=== PATIENT | female | born 1950 | race Caucasian/White ===

== ENCOUNTER 2017-10-23 21:40 | Inpatient (IN) | payer MEDICARE ==
[~2017-10-23] VITALS: Ht 152.4 cm; Wt 69.4 kg
[2017-10-23] MEDS ORDERED: ALBUTEROL/IPRATROPIUM 3 ML NEB NEB ONE (22:15)
[2017-10-23] MEDS ORDERED: ASPIRIN 81 MG CHEW TAB PO ONE (22:15)
[2017-10-23 22:33] LABS: BASOPHILS % 0.6 % (0.0-1.0); EOSINOPHILS # (AUTO) 0.1 (0.0-0.4); EOSINOPHILS % 1.8 % (0.0-6.0); HEMOGLOBIN 14.1 g/dL (12.0-16.0); LYMPHOCYTES # (AUTO) 0.9 (1.0-3.2); LYMPHOCYTES % 26.4 % (18.0-39.1); MEAN CORPUSCULAR HEMOGLOBIN 30.2 pg (28-32); MEAN CORPUSCULAR HGB CONC 33.6 g/dL (31-35); MEAN CORPUSCULAR VOLUME 89.9 fL (81-99); MONOCYTES # (AUTO) 0.4 (0.2-0.8); MONOCYTES % 13.2 % (4.4-11.3); NEUTROPHILS # (AUTO) 1.9 (2.1-6.9); NEUTROPHILS % 57.7 % (38.7-80.0); PLATELET COUNT 146 x10e3/uL (140-360); RED BLOOD COUNT 4.67 x10e6/uL (3.6-5.1); RED CELL DISTRIBUTION WIDTH 12.9 % (11.7-14.4)
[2017-10-23 22:39] LABS: BILIRUBIN,URINE NEGATIVE (NEGATIVE); CLARITY,URINE CLEAR (CLEAR); COLOR,URINE YELLOW (YELLOW); KETONES,URINE NEGATIVE (NEGATIVE); LEUKOCYTE ESTERASE ,URINE NEGATIVE (NEGATIVE); NITRITE,URINE NEGATIVE (NEGATIVE); PROTEIN,URINE DIPSTICK NEGATIVE (NEGATIVE); URINE UROBILINOGEN 0.2 mg/dL (0.2 - 1)
[2017-10-23 22:45] LABS: INR 0.93; PROTHROMBIN TIME 12.9 seconds (11.9-14.5)
[2017-10-23 22:46] LABS: PARTIAL THROMBOPLASTIN TIME 26.9 seconds (23.8-35.5)
[2017-10-23 22:51] LABS: EPITHELIAL CELLS,URINE RARE /LPF; RBC,URINE 0-5 /HPF (0-5); WBC,URINE (MAN) 0-5 /HPF (0-5)
[2017-10-23 22:52] LABS: ALBUMIN 3.6 g/dL (3.5-5.0); ALBUMIN/GLOBULIN RATIO 1.2 (0.8-2.0); ANION GAP 11.1 mmol/L (8-16); CALCIUM 8.8 mg/dL (8.4-10.2); CREATININE, SERUM 0.94 mg/dL (0.57-1.11); POTASSIUM 3.1 mmol/L (3.5-5.1)
[2017-10-23 22:58] LABS: CREATINE KINASE MB 3.4 ng/mL (0.00-5.00); TROPONIN I 0.135 ng/mL (0-0.300)
--- NOTE | 2017-10-23 23:45 | Diagnostic Imaging Report ---
EXAMINATION: CHEST SINGLE (PORTABLE) INDICATION: Chest pain. COMPARISON: None FINDINGS: TUBES and LINES: None. LUNGS: Lungs are well inflated. Lungs are clear. There is no evidence of pneumonia or pulmonary edema. PLEURA: No pleural effusion or pneumothorax. HEART AND MEDIASTINUM: The cardiomediastinal silhouette is unremarkable. Prominent left epicardial fat. BONES AND SOFT TISSUES: No acute osseous lesion. Soft tissues are unremarkable. UPPER ABDOMEN: No free air under the diaphragm. IMPRESSION: No acute thoracic abnormality. Signed by: Dr. Alfie Hyde M.D. on 10/23/2017 11:42 PM
[2017-10-24] MEDS ORDERED: POTASSIUM CHLORIDE 20 MEQ TAB CR PO STA ×2 (00:13→09:56)
[2017-10-24] MEDS ORDERED: ONDANSETRON HCL INJ 2 MG/ML VIAL IV STA (01:04)
[2017-10-24] MEDS ORDERED: MORPHINE SULFATE 2 MG/ML SYR IV STA (01:04)
[2017-10-24] MEDS ORDERED: ASPIRIN 81 MG CHEW TAB PO ONE (01:15)
[2017-10-24] MEDS: NITROGLYCERIN 2% OINT 1 GM PKT TOP SCH ×4 (01:33→18:00)
[2017-10-24] MEDS ORDERED: MORPHINE SULFATE 2 MG/ML SYR IV PRN (03:00)
[2017-10-24] MEDS ORDERED: ONDANSETRON HCL INJ 2 MG/ML VIAL IV PRN (03:00)
[2017-10-24] MEDS ORDERED: NITROGLYCERIN 0.4 MG SUBL SL PRN (03:00)
[2017-10-24] MEDS: OSELTAMIVIR PHOSPHATE 75 MG CAP PO SCH ×3 (03:32→16:10)
[2017-10-24] MEDS: ALBUTEROL SULF 0.083% NEB SOLN 3 ML NEB NEB SCH ×5 (05:22→18:55)
[2017-10-24] MEDS: IPRATROPIUM BROMIDE 0.02% 2.5 ML NEB NEB SCH ×5 (05:22→18:55)
[2017-10-24 08:28] LABS: CREATINE KINASE MB 12.9 ng/mL (0.00-5.00)
[2017-10-24 08:31] LABS: TROPONIN I 2.344 ng/mL (0-0.300)
[2017-10-24] MEDS ORDERED: ASPIRIN 81 MG ENTERIC COATED PO SCH (09:00)
[2017-10-24 09:40] VITALS: BP 102/57
[2017-10-24] MEDS: ASPIRIN 325 MG TAB PO SCH (10:30)
[2017-10-24] MEDS: FAMOTIDINE 20 MG/2 ML VIAL IV SCH ×2 (10:30→21:28)
--- NOTE | 2017-10-24 11:18 | History and Physical ---
PRIMARY CARE PHYSICIAN: Kd Mayo DO CHIEF COMPLAINT: Cough, shortness of breath, chest discomfort. HISTORY OF PRESENT ILLNESS: This is a 67-year-old woman with a history of COPD, who normally uses an inhaler. Now has been having shortness of breath and cough for the past week, worsening now with shortness of breath. Using a nebulizer, which she does not normally use. Had to take a nitroglycerin and aspirin and felt better, but came to the hospital for further evaluation and management. Here, she was found to have elevated troponin and positive flu test. She was admitted for further evaluation and management. PAST MEDICAL HISTORY 1. Hypertension. 2. Carotid artery stenosis, status post right carotid endarterectomy. 3. COPD. 4. Cigarette abuse, quitting 16 years ago. PAST SURGICAL HISTORY: Right carotid endarterectomy. ALLERGIES: PER ELECTRONIC MEDICAL RECORD. FAMILY HISTORY/SOCIAL HISTORY: Patient is single. She has 3 children. No alcohol or illicits. She quit cigarettes 16 years ago. MEDICATIONS: Per electronic medical record. REVIEW OF SYSTEMS: Denies any dizziness or chest pain at this time. PHYSICAL EXAMINATION VITAL SIGNS: Temperature 97.5, pulse 101, blood pressure 125/82. GENERAL: A tired-appearing woman resting in bed. HEENT: Anicteric. Pupils are responsive to light. No oral lesions. CARDIOVASCULAR: Normal S1 and S2. A loud murmur. LUNGS: Moderate breath sounds. Coarse breath sounds with deep inspiration. Cough on deep inspiration. Scattered wheezing. ABDOMEN: Soft, nontender, nondistended. EXTREMITIES: No edema. SKIN: Dry. PSYCHIATRIC: Normal affect. NEUROLOGIC: Alert and oriented times 3, moving all extremities. LABS: Reviewed. MEDICATIONS: Reviewed. ASSESSMENT AND PLAN: This is a 67-year-old woman. 1. Lif-MU-bmotvbkyl myocardial infarction. Cardiology consult. She had a stress test more than 2 years ago. Results are unknown. Cardiology has been consulted. We will follow enzymes. We will obtain a lipid panel. 2. Obesity. BMI 30.5. We will screen for diabetes and obtain a lipid panel. 3. Positive influenza screening. Continue Tamiflu and azithromycin. 4. Hypertension. Will treat with medications. 5. Acute bronchitis. Will use azithromycin. 6. Cough. Will use antitussive medication. 7. Acute kidney injury. Will reassess with the next lab results. 8. Hypokalemia, mild. Will reassess later today. 9. Prophylaxis. Will use Lovenox treatment dose q.12 h. and Pepcid. 10. Disposition: Follow up enzymes. Follow cardiology's recommendations. Treatment as noted above. Job#: [id number]
[2017-10-24] MEDS ORDERED: ALPRAZOLAM 0.5 MG TAB PO SCH (12:00)
[2017-10-24 13:11] VITALS: BP 92/53
--- NOTE | 2017-10-24 14:21 | Consultation ---
DATE OF CONSULTATION: October 24, 2017 CARDIOLOGY CONSULTATION REQUESTING PHYSICIAN: Dr. Gil Jordan. REASON FOR CONSULTATION: Elevated troponin. HISTORY OF PRESENT ILLNESS: This is a 67-year-old female that presented with chest pain. According to the patient, for the last 1 week she has been having productive cough and not really feeling good and unable to catch her breath. She stated today it got worse where she was not able to catch her breath. She took neb treatment, aspirin and nitroglycerin x3, and the chest pain was still going on that she decided to come into the emergency room for evaluation. She described the chest pain as a constant pressure on the left side of her chest on a scale of 9 out of 10 that radiated to her neck and jaw. She also stated it was accompanied with shortness of breath and diaphoresis. She has a history of COPD, and she was found to be flu positive. She also has a history of CVA with right carotid endarterectomy. She denies any palpitation, any dizziness or headache. Troponin x2 was positive. EKG showed normal sinus rhythm with nonspecific ST abnormalities. PAST MEDICAL HISTORY: CVA, fibromyalgia, COPD, hypertension, hyperlipidemia and diverticulitis. PAST SURGICAL HISTORY: Right carotid endarterectomy, removal of 10 inches of the colon and exploratory laparotomy, carpal tunnel surgery bilaterally, and lumpectomy on the left breast. FAMILY HISTORY: Positive for CAD. SOCIAL HISTORY: She quit smoking, and she lives at home with her family. MEDICATIONS: See med list. ALLERGIES: SHE IS NOT ALLERGIC TO ANY MEDICATION. REVIEW OF SYSTEMS: Negative except those mentioned above. She is positive for chest pain, elevated troponin, and flu positive. PHYSICAL EXAMINATION VITAL SIGNS: Temperature 98, heart rate 96, blood pressure 111/83, respiration 18, oxygen saturation 97% on 2 liters nasal cannula. GENERAL: She is awake, alert and oriented x3. HEENT: Mucous membrane moist. NECK: Supple. LUNGS: Bilaterally with decreased breath sounds. CARDIOVASCULAR: S1/S2 present. ABDOMEN: Soft. NEUROLOGICAL: Intact. EXTREMITIES: With no edema. LABS: Sodium 134, potassium 3.1, chloride 98, CO2 28, BUN 11, creatinine 0.94, glucose 135. White blood cell 3.33, hemoglobin 14.1, hematocrit 42.0, platelet 146. PT 12.9, PTT 26.9, INR 0.93. IMPRESSION 1. Chest pain. 2. Hgv-UO-abzeafxus myocardial infarction. 3. Chronic obstructive pulmonary disease exacerbation. 4. Flu A positive. 5. Hypertension. 6. Hyperlipidemia. 7. History of cerebrovascular accident. ASSESSMENT/PLAN: Will get serial cardiac enzymes. The 1st one was negative, 2nd one was positive 2.3. Would put her on Lovenox subcutaneous. Possible cardiac cath when stable. Will get an echo to assess the LV and valve function. She is already on Tamiflu, and will get a list of her home medication and replace potassium. Further cardiac workup pending clinical course. Thank you for this consultation. Dictated by: Lucía Washington NP Job#: [id number] MA[place]
[2017-10-24] MEDS: METOPROLOL TARTRATE 25 MG TAB PO SCH (16:10)
[2017-10-24 17:02] VITALS: BP 97/53
[2017-10-24 17:32] LABS: ANION GAP 12.7 mmol/L (8-16); CALCIUM 8.8 mg/dL (8.4-10.2); CREATININE, SERUM 0.97 mg/dL (0.57-1.11); POTASSIUM 4.7 mmol/L (3.5-5.1)
[2017-10-24 17:46] LABS: CREATINE KINASE MB 10.9 ng/mL (0.00-5.00)
[2017-10-24 17:48] LABS: TROPONIN I 1.248 ng/mL (0-0.300)
[2017-10-24 20:00] VITALS: BP 116/61
[2017-10-24] MEDS ORDERED: ATORVASTATIN 10 MG TAB PO SCH (21:00)
[2017-10-24] MEDS: SIMVASTATIN 20 MG TAB PO SCH (21:28)
[2017-10-24] MEDS: ENOXAPARIN INJ 80 MG/0.8 ML SYR SC SCH (21:28)
[2017-10-24] MEDS ORDERED: GUAIFENESIN/DEXTROMETHORPHAN LIQD 5 ML UDC PO PRN (21:45)
[2017-10-24] MEDS: BENZONATATE 100 MG CAP PO SCH (22:00)
[2017-10-25] VITALS: BP 109/95
[2017-10-25] MEDS: NITROGLYCERIN 2% OINT 1 GM PKT TOP SCH ×5 (00:48→23:45)
[2017-10-25] MEDS: ALBUTEROL SULF 0.083% NEB SOLN 3 ML NEB NEB SCH ×6 (01:05→23:00)
[2017-10-25] MEDS: IPRATROPIUM BROMIDE 0.02% 2.5 ML NEB NEB SCH ×5 (01:05→19:45)
[2017-10-25 04:00] VITALS: BP 105/61
[2017-10-25 07:54] LABS: BASOPHILS % 0.4 % (0.0-1.0); EOSINOPHILS % 0.4 % (0.0-6.0); HEMATOCRIT 39.5 % (34.2-44.1); HEMOGLOBIN 13.4 g/dL (12.0-16.0); LYMPHOCYTES # (AUTO) 1.5 (1.0-3.2); LYMPHOCYTES % 30.9 % (18.0-39.1); MEAN CORPUSCULAR HEMOGLOBIN 30.3 pg (28-32); MEAN CORPUSCULAR HGB CONC 33.9 g/dL (31-35); MEAN CORPUSCULAR VOLUME 89.4 fL (81-99); MONOCYTES # (AUTO) 0.6 (0.2-0.8); MONOCYTES % 12.7 % (4.4-11.3); NEUTROPHILS # (AUTO) 2.8 (2.1-6.9); NEUTROPHILS % 55.4 % (38.7-80.0); PLATELET COUNT 132 x10e3/uL (140-360); RED BLOOD COUNT 4.42 x10e6/uL (3.6-5.1); RED CELL DISTRIBUTION WIDTH 13.2 % (11.7-14.4)
[2017-10-25 08:07] LABS: ALBUMIN 3.1 g/dL (3.5-5.0); ALBUMIN/GLOBULIN RATIO 1.1 (0.8-2.0); CALCIUM 8.4 mg/dL (8.4-10.2); CHOL/HDL RATIO 3.4 (3.0-3.6); CREATININE, SERUM 0.97 mg/dL (0.57-1.11)
[2017-10-25 08:12] VITALS: BP 118/59
[2017-10-25] MEDS ORDERED: LISINOPRIL 10 MG TAB PO SCH ×2 (09:00)
[2017-10-25] MEDS: FAMOTIDINE 20 MG/2 ML VIAL IV SCH ×2 (09:16→21:00)
[2017-10-25] MEDS: ASPIRIN 325 MG TAB PO SCH (09:16)
--- NOTE | 2017-10-25 09:16 | Progress Note ---
DATE: October 25, 2017 TIME: 8:50 a.m. OVERNIGHT: No events. No chest pain. REVIEW OF SYSTEMS: Denies any dizziness. PHYSICAL EXAMINATION VITAL SIGNS: Reviewed. GENERAL: A tired-appearing woman resting in bed. HEENT: Anicteric. CARDIOVASCULAR: Normal S1 and S2. LUNGS: Moderate breath sounds. ABDOMEN: Soft, nontender and nondistended. EXTREMITIES: No edema. SKIN: Dry. PSYCHIATRIC: Flat affect. LABS: Reviewed. MEDICATIONS: Reviewed. ASSESSMENT: A 67-year-old woman with: 1. Meu-OW-vklrrol elevation myocardial infarction. 2. Obesity: Body mass index 30.5. 3. Positive influenza screening. 4. Hypertension. 5. Acute bronchitis/cough. 6. Acute kidney injury. 7. Hypokalemia, mild. PLAN 1. Continue medical treatment of acute coronary syndrome and follow up cardiology recommendations. 2. Continue Tamiflu and azithromycin, day #2. 3. Continue treatment for acute bronchitis. 4. Continue antitussive medications. 5. Hypokalemia has resolved. 6. Continue Lovenox treatment dose. Await cardiology recommendations. 7. LDL 69 and triglycerides 119. Hemoglobin A1c 5.5. Job#: [id number] COLLEEN
[2017-10-25] MEDS: METOPROLOL TARTRATE 25 MG TAB PO SCH ×2 (09:17→17:06)
[2017-10-25] MEDS: ENOXAPARIN INJ 80 MG/0.8 ML SYR SC SCH ×2 (09:17→21:00)
[2017-10-25] MEDS: BENZONATATE 100 MG CAP PO SCH ×3 (09:17→21:00)
[2017-10-25] MEDS: LISINOPRIL 2.5 MG TAB PO SCH (09:17)
[2017-10-25] MEDS: ISOSORBIDE MONONITRATE 30 MG TAB CR PO SCH (09:17)
[2017-10-25] MEDS: OSELTAMIVIR PHOSPHATE 75 MG CAP PO SCH ×2 (09:17→17:06)
[2017-10-25 12:15] VITALS: BP 102/52
[2017-10-25 16:21] VITALS: BP 105/55
[2017-10-25 20:02] VITALS: BP 121/68
[2017-10-25] MEDS: SIMVASTATIN 20 MG TAB PO SCH (21:00)
[2017-10-26 00:35] VITALS: BP 112/60
[2017-10-26] MEDS: IPRATROPIUM BROMIDE 0.02% 2.5 ML NEB NEB SCH ×6 (02:11→23:00)
[2017-10-26] MEDS: ALBUTEROL SULF 0.083% NEB SOLN 3 ML NEB NEB SCH ×6 (02:12→23:00)
[2017-10-26 04:15] VITALS: BP 108/51
[2017-10-26] MEDS: NITROGLYCERIN 2% OINT 1 GM PKT TOP SCH ×3 (06:12→18:00)
[2017-10-26] MEDS ORDERED: FENTANYL CITRATE/PF 100MCG/2 ML INJ ONE (06:43)
[2017-10-26] MEDS ORDERED: HEPARIN SOD (PORCINE) 1000 UNIT/ML 30ML ONE (06:43)
[2017-10-26] MEDS ORDERED: HEPARIN SOD/SOD CHLORIDE 0 ML ONE (06:44)
[2017-10-26] MEDS ORDERED: LIDOCAINE HCL 2% LOCAL 20 ML VIAL ONE (06:44)
[2017-10-26] MEDS ORDERED: IOPAMIDOL 370 MG/ML 200 ML INFUS..BTL INJ ONE (06:44)
[2017-10-26] MEDS ORDERED: IOPAMIDOL 300MG/ML 50ML INFUS..BTL IV ONE (06:44)
[2017-10-26] MEDS ORDERED: MIDAZOLAM HCL 2 MG/2 ML VIAL ONE (06:45)
[2017-10-26] MEDS ORDERED: SODIUM CHLORIDE 0.9% 1000ML 0 ML ONE (06:45)
[2017-10-26 07:52] VITALS: BP 108/65
[2017-10-26] MEDS: ASPIRIN 325 MG TAB PO SCH (09:15)
[2017-10-26] MEDS: FAMOTIDINE 20 MG/2 ML VIAL IV SCH ×2 (09:15→21:25)
[2017-10-26] MEDS: ENOXAPARIN INJ 80 MG/0.8 ML SYR SC SCH ×3 (09:15→22:00)
[2017-10-26] MEDS: BENZONATATE 100 MG CAP PO SCH ×3 (09:15→21:25)
[2017-10-26] MEDS: OSELTAMIVIR PHOSPHATE 75 MG CAP PO SCH ×2 (09:15→18:13)
[2017-10-26] MEDS: METOPROLOL TARTRATE 25 MG TAB PO SCH ×2 (09:16→17:00)
[2017-10-26] MEDS: ISOSORBIDE MONONITRATE 30 MG TAB CR PO SCH (09:16)
[2017-10-26] MEDS: LISINOPRIL 2.5 MG TAB PO SCH (09:16)
--- NOTE | 2017-10-26 09:21 | Progress Note ---
DATE: October 26, 2017 TIME: 8 a.m. OVERNIGHT: Patient had some shortness of breath, practically short of breath with minimal ambulation. No chest pain. REVIEW OF SYSTEMS: Denies any dizziness. PHYSICAL EXAMINATION VITAL SIGNS: Reviewed. GENERAL: A tired-appearing woman resting in bed. HEENT: Anicteric. CARDIOVASCULAR: Normal S1 and S2. No murmurs heard. LUNGS: Some cough with deep inspiration. ABDOMEN: Soft, nontender and nondistended. EXTREMITIES: No edema. SKIN: Dry. PSYCHIATRIC: Normal affect. LABS: Reviewed. LDL 69, triglycerides 119. Hemoglobin A1c 5.5. MEDICATIONS: Reviewed. ASSESSMENT: A 67-year-old woman with 1. Non-ST segment elevation myocardial infarction. 2. Obesity: Body mass index 30.5. 3. Positive influenza screening. 4. Hypertension. 5. Acute bronchitis/cough. 6. Acute kidney injury. 7. Hypokalemia. PLAN 1. Continue medical management and medical treatment for acute coronary syndrome. 2. Continue Tamiflu day #3. 3. Continue treatment for acute bronchitis. 4. Continue antitussive medication. 5. Continue Lovenox treatment. 6. Patient refused left heart catheterization, therefore we will continue medical management only. 7. Discharge planning. Job#: [id number]
[2017-10-26 12:01] VITALS: BP 104/73
[2017-10-26 15:54] VITALS: BP 95/64
[2017-10-26 20:36] VITALS: BP 102/72
[2017-10-26] MEDS: SIMVASTATIN 20 MG TAB PO SCH (21:25)
[2017-10-27 00:04] VITALS: BP 101/71
[2017-10-27 04:17] VITALS: BP 101/71
[2017-10-27] MEDS: NITROGLYCERIN 2% OINT 1 GM PKT TOP SCH ×4 (05:20→18:23)
[2017-10-27 05:27] VITALS: BP 92/70
[2017-10-27] MEDS ORDERED: LIDOCAINE HCL 2% LOCAL 20 ML VIAL ONE (06:44)
[2017-10-27] MEDS ORDERED: HEPARIN SOD (PORCINE) 1000 UNIT/ML 30ML ONE (06:44)
[2017-10-27] MEDS ORDERED: SODIUM CHLORIDE 0.9% 1000ML 1,000 ML ONE (06:45)
[2017-10-27] MEDS ORDERED: IOPAMIDOL 370 MG/ML 200 ML INFUS..BTL INJ ONE (06:45)
[2017-10-27] MEDS ORDERED: NITROGLYCERIN/D5W 200 MCG/ML 250 ML ONE (06:45)
[2017-10-27] MEDS ORDERED: IOPAMIDOL 300MG/ML 50ML INFUS..BTL IV ONE (06:45)
[2017-10-27] MEDS ORDERED: HEPARIN SOD/SOD CHLORIDE 2,000 ML ONE (06:45)
[2017-10-27] MEDS: IPRATROPIUM BROMIDE 0.02% 2.5 ML NEB NEB SCH ×5 (07:00→23:00)
[2017-10-27] MEDS: ALBUTEROL SULF 0.083% NEB SOLN 3 ML NEB NEB SCH ×5 (07:00→23:00)
[2017-10-27 07:44] VITALS: BP 121/68
[2017-10-27] MEDS ORDERED: MIDAZOLAM HCL 2 MG/2 ML VIAL ONE (07:44)
[2017-10-27] MEDS ORDERED: FENTANYL CITRATE/PF 100MCG/2 ML INJ ONE (07:44)
--- NOTE | 2017-10-27 08:07 | Progress Note ---
DATE: October 27, 2017 TIME: 7:30 a.m. OVERNIGHT: No events. No chest pain. REVIEW OF SYSTEMS: Denies any dizziness. PHYSICAL EXAMINATION VITAL SIGNS: Reviewed. GENERAL: A tired-appearing woman resting in bed. HEENT: Anicteric. CARDIOVASCULAR: Normal S1 and S2. LUNGS: Moderate breath sounds. ABDOMEN: Soft, nontender and nondistended. EXTREMITIES: No edema. SKIN: Dry. PSYCHIATRIC: Flat affect. LABS: Reviewed. MEDICATIONS: Reviewed. ASSESSMENT: A 67-year-old woman with: 1. Cyj-AS-wetjxgo elevation myocardial infarction. 2. Obesity: Body mass index 30.5. 3. Positive influenza screening. 4. Hypertension. 5. Acute bronchitis/cough. 6. Acute kidney injury. 7. Hypokalemia. PLAN 1. Left heart catheterization pending today. 2. Continue Tamiflu, day #4. 3. Continue treatment for acute bronchitis. Will continue antitussive medications. 4. Continue Lovenox. 5. Continue Pepcid while on anticoagulant. Job#: [id number] [place]
[2017-10-27] MEDS: LISINOPRIL 2.5 MG TAB PO SCH (09:00)
[2017-10-27] MEDS: ASPIRIN 325 MG TAB PO SCH (09:00)
[2017-10-27] MEDS: ISOSORBIDE MONONITRATE 30 MG TAB CR PO SCH (09:00)
[2017-10-27] MEDS: FAMOTIDINE 20 MG/2 ML VIAL IV SCH ×2 (09:45→20:28)
[2017-10-27] MEDS: BENZONATATE 100 MG CAP PO SCH ×3 (09:45→20:28)
[2017-10-27] MEDS: OSELTAMIVIR PHOSPHATE 75 MG CAP PO SCH ×2 (09:45→18:00)
[2017-10-27] MEDS: METOPROLOL TARTRATE 25 MG TAB PO SCH ×2 (09:45→18:00)
[2017-10-27 12:38] VITALS: BP 106/56
[2017-10-27 20:00] VITALS: BP 98/54
[2017-10-27] MEDS: SIMVASTATIN 20 MG TAB PO SCH (20:28)
[2017-10-28] VITALS: BP 97/51
[2017-10-28 00:19] VITALS: BP 97/51
[2017-10-28] MEDS: ALBUTEROL SULF 0.083% NEB SOLN 3 ML NEB NEB SCH ×2 (03:40→07:00)
[2017-10-28] MEDS: IPRATROPIUM BROMIDE 0.02% 2.5 ML NEB NEB SCH ×2 (03:40→07:00)
[2017-10-28 04:00] VITALS: BP 110/63
[2017-10-28] MEDS: NITROGLYCERIN 2% OINT 1 GM PKT TOP SCH ×3 (05:33→12:00)
[2017-10-28 08:00] VITALS: BP 117/82
[2017-10-28] MEDS: LISINOPRIL 2.5 MG TAB PO SCH (09:30)
[2017-10-28] MEDS: BENZONATATE 100 MG CAP PO SCH ×2 (09:30→16:15)
[2017-10-28] MEDS: ASPIRIN 325 MG TAB PO SCH (09:30)
[2017-10-28] MEDS: ISOSORBIDE MONONITRATE 30 MG TAB CR PO SCH (09:30)
[2017-10-28] MEDS: METOPROLOL TARTRATE 25 MG TAB PO SCH (09:30)
[2017-10-28] MEDS: FAMOTIDINE 20 MG/2 ML VIAL IV SCH (09:30)
[2017-10-28] MEDS: OSELTAMIVIR PHOSPHATE 75 MG CAP PO SCH ×2 (09:30→16:15)
[2017-10-28 12:00] VITALS: BP 101/65
[2017-10-28] MEDS ORDERED: NITROSTAT0.4 MG SL (13:42)
[2017-10-28] MEDS ORDERED: LISINOPRIL2.5 MG PO (13:42)
[2017-10-28] MEDS ORDERED: TESSALON PERLE100 MG PO (13:42)
[2017-10-28] MEDS ORDERED: PLAVIX75 MG PO (13:42)
[2017-10-28] MEDS ORDERED: SIMVASTATIN20 MG PO (13:42)
[2017-10-28] MEDS ORDERED: Isosorbide Mononitrate PO (13:42)
[2017-10-28] MEDS ORDERED: ASPIRIN325 MG PO (13:42)
[2017-10-28] MEDS ORDERED: LOPRESSOR25 MG PO (13:42)
[2017-10-28 16:00] VITALS: BP 102/76
--- NOTE | 2017-10-29 09:59 | Discharge Summary ---
PRINCIPAL DIAGNOSES 1. Non-ST elevation myocardial infarction with heart catheterization done without intervention. 2. Obesity. BMI 30.5. 3. Positive influenza, treated with Tamiflu. 4. Acute bronchitis. 5. Acute kidney injury. 6. Severe chronic obstructive pulmonary disease requiring oxygen now. SECONDARY DIAGNOSIS: Chronic obstructive pulmonary disease. CHIEF COMPLAINT: Shortness of breath, cough and chest pain. HISTORY OF PRESENT ILLNESS: This is a 67-year-old woman with chest pain. Please refer to the H\T\P for further details. HOSPITAL COURSE: The patient was found to have non-ST elevation HI and underwent heart catheterization without intervention. She had obesity with BMI 30.5, positive influenza screening treated with Tamiflu for 5 days. Acute exacerbation of COPD treated with steroids and nebs and antitussive medications. The patient is doing better and feeling better and currently appropriate for discharge. DISCHARGE MEDICATIONS: Per electronic medical records. FOLLOWUP INSTRUCTIONS: Follow up with primary care physician in one week and follow up with cardiology in 2 weeks. CONDITION ON DISCHARGE: Stable and improving. DISCHARGE LOCATION: Home with oxygen. MARCO A BURTON MD Job#: [id number]
--- NOTE | 2017-11-04 20:05 | Operative Report ---
DATE OF PROCEDURE: October 27, 2017 NOTE: This report was dictated but apparently did not go through, so it has been redictated. INDICATIONS: Sxi-XK-tpaatyzat myocardial infarction. PROCEDURES PERFORMED 1. Left heart catheterization. 2. Selective coronary angiogram. 3. Left ventriculogram. DESCRIPTION OF PROCEDURE: After informed consent, the patient was brought to the cardiac catheterization laboratory and placed on the table. Both groins were painted and draped in a sterile fashion. Lidocaine was injected in the right groin for local anesthesia. The right femoral artery was accessed by Seldinger technique, and a 5-Eritrean sheath was placed in the right femoral artery. The left main artery was cannulated using a [id number] 5-Eritrean catheter. Coronary angiogram was performed, and images were obtained in multiple views. The right coronary artery was cannulated using a [id number] 5-Eritrean catheter. Coronary angiogram was performed, and images were obtained in multiple views. LV-gram was performed using a pigtail catheter. The patient tolerated the procedure without any complications. REPORT LEFT MAIN: Normal caliber and free of disease. LEFT ANTERIOR DESCENDING: Narrow caliber, and there are luminal irregularities. LEFT CIRCUMFLEX: Normal caliber and free of disease. RIGHT CORONARY ARTERY: Normal caliber and free of disease. LV-GRAM: Normal LV function. Overall ejection fraction is 55%. HEMODYNAMICS: Aortic pressure 112/65, LV pressure 115/6, LVEDP 20. PLAN: Medical management. Job#: [id number]
== END 2017-10-28 17:00 | disposition home or self-care (01) | DRG 281 ==
LOC: ER 21:40 → ERHOLD 10-24 03:18 → IMCU 10-24 08:22 → MED/SURG3 10-24 15:37 → OBSVTOIN 10-25 08:45
PROVIDERS: ADMIT Internal Medicine; ATTEND Internal Medicine
PROC: 4A023N7 Measurement of Cardiac Sampling and Pressure, Left Heart, Percutaneous Approach (ICD-10-PCS; principal; 2017-10-27)
PROC: B2111ZZ Fluoroscopy of Multiple Coronary Arteries using Low Osmolar Contrast (ICD-10-PCS; 2017-10-27)
PROC: B2151ZZ Fluoroscopy of Left Heart using Low Osmolar Contrast (ICD-10-PCS; 2017-10-27)
DX: I21.4 Non-ST elevation (NSTEMI) myocardial infarction (principal); I31.9 Disease of pericardium, unspecified; N17.9 Acute kidney failure, unspecified; J44.0 Chronic obstructive pulmonary disease with (acute) lower respiratory infection; J44.1 Chronic obstructive pulmonary disease with (acute) exacerbation; J10.1 Influenza due to other identified influenza virus with other respiratory manifestations; J20.9 Acute bronchitis, unspecified; I10 Essential (primary) hypertension; E78.5 Hyperlipidemia, unspecified; M79.7 Fibromyalgia; E87.6 Hypokalemia; E66.9 Obesity, unspecified; Z68.30 Body mass index [BMI] 30.0-30.9, adult; Z87.891 Personal history of nicotine dependence; Z86.73 Personal history of transient ischemic attack (TIA), and cerebral infarction without residual deficits; Z79.82 Long term (current) use of aspirin; Z79.02 Long term (current) use of antithrombotics/antiplatelets
CPT/HCPCS: 36140; 36415; 71010; 77002; 80048; 80053; 80061; 81001; 82550; 82553; 83036; 83605; 83880; 84484; 85025; 85610; 85730; 87040; 87086; 87400; 93005; 93306; 93452; 93458; 94640; 96374; 96375; 96376; 99284; G0378; J1644; J1650; J2001; J2250; J2270; J2405; J7030; Q9967

== ENCOUNTER → 2018-10-26 | Outpatient (CLI) | payer MEDICARE ==
[~2018-10-26] MED LIST: ASPIRIN325 MG PO; FENTANYL CITRATE/PF 100MCG/2 ML INJ ONE; Isosorbide Mononitrate PO; LISINOPRIL2.5 MG PO; LOPRESSOR25 MG PO; NITROSTAT0.4 MG SL; PLAVIX75 MG PO; SIMVASTATIN20 MG PO; TESSALON PERLE100 MG PO
--- NOTE | 2018-10-26 15:21 | Diagnostic Imaging Report ---
EXAMINATION: Abdominal ultrasound. CLINICAL INDICATION: Right upper quadrant pain COMPARISON: None DISCUSSION: Transverse and longitudinal images of the upper abdomen were obtained. The liver is normal in size measuring 13.6 centimeters in length in the right midclavicular line and shows normal echogenicity. No focal masses are seen in the liver. There is no intrahepatic biliary dilatation. The common bile duct measures 0.2 cm. The main portal vein is normal in caliber and measures 0.8 cm with normal hepatopetal flow. The gallbladder is normal in appearance without stones, wall thickening or pericholecystic fluid. The sonographic Dalton's sign is negative. The visualized portions of the pancreatic body are unremarkable. The spleen is normal in echogenicity and size measuring 7.1 centimeters in length. The right kidney measures 9.4 centimeters in length and the left kidney measures 9 centimeters. There is normal renal cortical echogenicity and no hydronephrosis, solid mass or shadowing calculi. The visualized portions of the great vessels are normal. No free fluid is seen. IMPRESSION: Normal abdominal ultrasound. Signed by: Dr. Bradford Guerin M.D. on 10/26/2018 3:17 PM
== END ==
LOC: US 13:14
PROVIDERS: ATTEND Family Medicine
DX: R10.11 Right upper quadrant pain (principal)
CPT/HCPCS: 76700

== ENCOUNTER → 2021-02-04 | Outpatient (CLI) | payer MEDICARE ==
[~2021-02-04] MED LIST changes: -FENTANYL CITRATE/PF 100MCG/2 ML INJ ONE
== END ==
LOC: RAD 12:16
PROVIDERS: ATTEND Internal Medicine Critical Care Medicine
DX: J44.9 Chronic obstructive pulmonary disease, unspecified (principal)
CPT/HCPCS: 71046

== ENCOUNTER → 2025-01-08 | Outpatient (REF) | payer MEDICARE | LOC: RAD 15:38 | PROVIDERS: ATTEND Internal Medicine Critical Care Medicine | DX: J44.9 Chronic obstructive pulmonary disease, unspecified (principal) | CPT/HCPCS: 71046 ==